=== PATIENT | female | born 1935 | race Caucasian/White ===

== ENCOUNTER 2016-06-26 09:20 | Emergency (ER) | payer MEDICARE ==
--- NOTE | 2016-07-02 21:34 | ER ---
ADMIT: 06/26/2016 RM/LOC: ER [facility] MR#: [id number] [address] [id number] [place] [address] Emergency Room Report SEX: F AGE: 80 : 1935 DATE: 06/26/2016 CHIEF COMPLAINT: Right hip pain. HISTORY OF PRESENT ILLNESS: This is a pleasant 80-year-old, white female, who presents to the ER with 3 days duration of what she describes as right hip pain. Upon further questioning, the pain is actually more on the right side of her lower back. She states she was doing some yard work last week, but does not recall any specific injury. No specific lifting, turning, or bending mechanism to her recollection. She states the pain has been constant and worsening over the last day. She rates the pain as a 5/10. She states it is sharp and "tight." States the pain radiates down her right leg to her knee. Denies any fever, chills, constipation, incontinence, nausea, vomiting, numbness, tingling, problems urinating, difficulty walking, numbness or tingling. States pain is worse with movement and has not used any remedies for the pain to include ice, heat, or Tylenol at this point. COURSE IN THE EMERGENCY ROOM: Patient was seen and examined. She is afebrile. She is nontoxic. She does have point tenderness to the musculature of the right side of her low back. It radiates to the right knee. She does have full range of motion. Strength is equal in the lower extremities compared bilaterally. Sensation is intact. Reflexes are 2+ compared bilaterally. No evidence of any pedal edema. She was able to ambulate into the department today with some difficulty. She does not use a wheeled walker. She was given 5 of morphine prior to discharge. IMPRESSION: Low back strain, sciatica on the right. DISPOSITION: The patient was encouraged to start using Tylenol 1 g every 4-6 hours as needed for pain as well as applying ice and heat to her preference. She is to remain active over the next several days as sedentary living can actually exacerbate her pain. I did hold off on any narcotic pain medications today as she has not yet tried over the counter and I fear that this may increase her fall risk. Told her to follow up with Dr. Long if the pain continues to not improve. Questions were sought and answered to the best of our ability and patients satisfaction. She was discharged in stable condition. LUIS Fowler / Russell Zavala MD / kadeem JOB #: [id number] CC: Russell Zavala MD, Attending Physician Rahat Long MD, Family Physician
== END 2016-06-26 10:00 | disposition home or self-care (01) ==
LOC: ER 09:20
DX: S39.012A Strain of muscle, fascia and tendon of lower back, initial encounter (principal); M54.31 Sciatica, right side; I10 Essential (primary) hypertension; Z98.890 Other specified postprocedural states; Z79.82 Long term (current) use of aspirin; Z88.8 Allergy status to other drugs, medicaments and biological substances